=== PATIENT | female | born 1970 | race Caucasian/White ===

== ENCOUNTER 2020-11-24 21:13 | Emergency (ER) | payer BC, OTHER ==
[~2020-11-24] VITALS: Ht 162.6 cm; Wt 140.0 kg
[~2020-11-24 21:13] MED LIST: CHOL10002 PO; ESTR0.3T PO; LEVO150T61 PO; LISI-170 PO; MULT-154 PO; OXYC5TAB2 PO
[2020-11-24 21:20] VITALS: BP 166/81
--- NOTE | 2020-11-24 22:02 | NUR ---
COMMUNITY SERVICES OFFICER: PT PROVIDED URINE SAMPLE. UA ORDERED PER PROTOCOL AND SENT TO LAB.
[2020-11-24 22:11] LABS: MICROSCOPIC INDICATED
--- NOTE | 2020-11-24 22:36 | NUR ---
PT IN ULTRASOUND AT THIS TIME.
--- NOTE | 2020-11-24 23:07 | NUR ---
PATIENT REMAINS IN US.
[2020-11-24 23:24] LABS: BASOPHILS % (AUTO) 1 % (0-1); EOSINOPHILS % (AUTO) 0 % (1-7); LYMPHOCYTES % (AUTO) 12 % (22-44); MEAN CORPUSCULAR HEMOGLOBIN 29.7 pg (27.0-34.8); MEAN CORPUSCULAR HGB CONC 33.7 g/dL (32.4-35.8); MEAN PLATELET VOLUME 7.6 fL (7.4-10.4); MONOCYTES % (AUTO) 4 % (2-9); NEUTROPHILS % (AUTO) 84 % (42-75); PLATELET COUNT 342 x10^3/uL (130-400); RED BLOOD COUNT 4.59 x10^6/uL (3.82-5.3); RED CELL DISTRIBUTION WIDTH 15.1 % (9.6-15.2)
[2020-11-24 23:36] LABS: ALANINE AMINOTRANSFERASE 17 U/L (12-78); ALBUMIN 3.3 g/dL (3.4-5.0); ANION GAP 5 mmol/L (5-15); CALCIUM 8.5 mg/dL (8.5-10.1); CHLORIDE 103 mmol/L (98-107); CREATININE 0.72 mg/dL (0.55-1.02)
[2020-11-24 23:41] LABS: ALKALINE PHOSPHATASE 86 U/L (45-117); BILIRUBIN,TOTAL 0.3 mg/dL (0.2-1.0); TOTAL PROTEIN 8.3 g/dL (6.4-8.2); TROPONIN I < 0.015 ng/mL (0.000-0.045)
[2020-11-25] MEDS ORDERED: MAALOX/HYOSCYAMINE/LIDOCAINE 45 ML BTL PO ONE (00:30)
[2020-11-25] MEDS ORDERED: MAALOX/HYOSCYAMINE/LIDOCAINE 45 ML BTL ONE (00:40)
--- NOTE | 2020-11-25 00:46 | NUR ---
Patient given discharge instructions and they have confirmed that they understand the instructions. Patient ambulatory with steady gait. NAD, all questions answered appropriately, denies additional needs at this time. No personal belongings left in room after discharge.
== END 2020-11-25 00:48 | disposition home or self-care (01) ==
LOC: ED 23:45
DX: K29.00 Acute gastritis without bleeding (principal); K80.20 Calculus of gallbladder without cholecystitis without obstruction; R10.12 Left upper quadrant pain; I10 Essential (primary) hypertension; E11.9 Type 2 diabetes mellitus without complications
CPT/HCPCS: 36415; 74021; 76700; 80053; 81001; 83690; 84484; 85025; 87086; 93005; 99285